=== PATIENT | female | born 1960 | race Caucasian/White ===

== ENCOUNTER 2016-08-04 17:05 | Emergency (ER) | payer MEDICAID ==
[2016-08-04 17:16] VITALS: BP 127/88; PULSE 84; RESP 20; TEMP 97.9; O2SAT 98
--- NOTE | 2016-08-04 17:41 | C.PDOC ---
History Of Present Illness 55 y/o female presents to the ED with complains of left ear canal pain. Pt was seen by Dr Reeder last week given Rx for cortisporin otic solution. Pt with prior presentations of right ear discomfort including extensive radiologic studies. Denies fever, chills, cough, sore throat, dizziness or any other complaints. Time Seen by Provider: 08/04/16 17:28 Chief Complaint (Nursing): Dizziness/Lightheaded History Per: Patient History/Exam Limitations: no limitations Onset/Duration Of Symptoms: Days Current Symptoms Are (Timing): Still Present Fall Associated With With Symptoms: No Severity: Mild Recent travel outside of the [place]: No Past Medical History Reviewed: Historical Data, Nursing Documentation, Vital Signs Vital Signs: Last Vital Signs Temp 97.9 F 08/04/16 17:12 Pulse 84 08/04/16 17:12 Resp 20 08/04/16 17:12 BP 127/88 08/04/16 17:12 Pulse Ox 98 08/04/16 17:46 - Medical History PMH: Anemia, Arthritis, Hypercholesterolemia, Migraine, Rheumatoid Arthritis Surgical History: Appendectomy Family History: States: Unknown Family Hx - Social History Hx Tobacco Use: No Hx Alcohol Use: No Hx Substance Use: No - Immunization History Hx Tetanus Toxoid Vaccination: No Hx Influenza Vaccination: No Hx Pneumococcal Vaccination: No Review Of Systems Except As Marked, All Systems Reviewed And Found Negative. Constitutional: Negative for: Fever, Chills ENT: Positive for: Ear Pain (left). Negative for: Throat Pain Respiratory: Negative for: Cough Physical Exam - Physical Exam Appears: Non-toxic, No Acute Distress Skin: Warm, Dry, No Rash Head: Atraumatic, Normacephalic Eye(s): left: Other (atrophy, baseline from childhood) Ear(s): Right: Other (ear canal boggy without exudate; bilateral TMs normal) Nose: Normal Oral Mucosa: Moist Throat: Normal, No Erythema Neck: Normal ROM, Supple Chest: Symmetrical Cardiovascular: Rhythm Regular, No Murmur Respiratory: Normal Breath Sounds, No Rales, No Rhonchi, No Wheezing Extremity: Bilateral: Atraumatic Neurological/Psych: Oriented x3 ED Course And Treatment O2 Sat by Pulse Oximetry: 98 (room air) Pulse Ox Interpretation: Normal Medical Decision Making Medical Decision Making: R ear canal inflammation unclear if pt using Cortisporin Otic Soln TID x 3 drops as prescribed by Dr. Reeder last week Normal TM noted. Pt demanding agressive intervention but none seem suitable Referred back to f/u with Dr. Reeder as instructed previously. Repeat CT's and eval deferred as pt's otitis externa well understood and LOW likelyhood of surreptitious underlying pathology considering the plethora of normal radiological studies and recent ENT eval with only otitis externa noted. [place]: recent Tylenol #3 prescription noted Valium 2 mg may illucidate underlying anxiety disorder. 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 I have reviewed the chart and agree that the record accurately reflects my personal performance of the history, physical exam, medical decision making, and the department course for this patient. I have also personally directed, reviewed, and agree with the discharge instructions and disposition.
== END 2016-08-04 17:54 | disposition left against medical advice (07) ==
LOC: C.ER 17:05
DX: H60.92 Unspecified otitis externa, left ear (principal)

== ENCOUNTER 2016-12-22 23:08 | Emergency (ER) | payer MEDICAID ==
--- NOTE | 2016-12-23 00:11 | C.PDOC ---
History Of Present Illness Patient presents to the ED for evaluation of a rash to her face and neck which has been occurring intermittently for around 3 weeks. Patient states she was evaluated in [facility] last week for similar complaints and was discharged with prescriptions for Benadryl and Medrol pack. Patient states the rash has persisted and presents to the ED for further evaluation. She denies fever, chills, cough, shortness of breath, throat swelling. Time Seen by Provider: 12/23/16 00:11 Chief Complaint (Nursing): Allergic Reaction History Per: Patient History/Exam Limitations: no limitations Onset/Duration Of Symptoms: Intermittent Episodes (around 3 weeks ) Current Symptoms Are (Timing): Still Present Possible Cause: Unknown Associated Symptoms: Skin Rash. denies: Dyspnea, Trouble Swallowing Home/EMS Treatment: Benadryl Severity: Mild Pain Scale Rating Of: 3 Recent travel outside of the [place]: No Additional History Per: Patient Past Medical History Reviewed: Historical Data, Nursing Documentation, Vital Signs Vital Signs: Last Vital Signs Temp 98.4 F 12/22/16 23:54 Pulse 73 12/22/16 23:54 Resp 20 12/22/16 23:54 BP 144/83 12/22/16 23:54 Pulse Ox 99 12/23/16 00:35 - Medical History PMH: Anemia, Arthritis, Hypercholesterolemia, Migraine, Rheumatoid Arthritis Surgical History: Appendectomy Family History: States: Unknown Family Hx - Social History Hx Tobacco Use: No Hx Alcohol Use: No Hx Substance Use: No - Immunization History Hx Tetanus Toxoid Vaccination: No Hx Influenza Vaccination: No Hx Pneumococcal Vaccination: No Review Of Systems Constitutional: Negative for: Fever, Chills Eyes: Negative for: Redness ENT: Negative for: Throat Swelling Cardiovascular: Negative for: Chest Pain, Palpitations Respiratory: Negative for: Cough, Shortness of Breath Gastrointestinal: Negative for: Nausea, Vomiting Musculoskeletal: Negative for: Back Pain Skin: Positive for: Rash (face and neck ). Negative for: Lesions, Jaundice, Bruising Neurological: Negative for: Weakness, Numbness Psych: Negative for: Anxiety Physical Exam - Physical Exam Appears: Non-toxic, No Acute Distress Skin: Warm, Dry, Rash (urticaria to face, neck and mild to anterior chest wall ) Head: Normacephalic Eye(s): bilateral: Normal Inspection, PERRL, EOMI Oral Mucosa: Moist Tongue: Normal Appearing Lips: Normal Appearing Throat: No Erythema, No Exudate, No Drooling, Other (tolerating PO intake ) Neck: Trachea Midline, Supple Chest: Symmetrical, No Deformity, No Tenderness Cardiovascular: Rhythm Regular, No Murmur Respiratory: No Rales, No Rhonchi, No Wheezing, Other (speaking complete sentences ) Gastrointestinal/Abdominal: Soft, No Tenderness, No Distention Extremity: Normal ROM, Capillary Refill (less than 2 seconds ) Extremity: Bilateral: Atraumatic Neurological/Psych: Oriented x3, Normal Speech, Normal Cognition Gait: Steady ED Course And Treatment O2 Sat by Pulse Oximetry: 99 (on RA) Pulse Ox Interpretation: Normal Progress Note: Patient received Benadryl IVP, Pepcid IVP, Solu-Medrol IVP, and IV Fluids. Reevaluation Time: 01:37 Reassessment Condition: Improved Critical Care Time - Critical Care Note Total Time (in mins): 30 Documented critical care: time excludes all time spent performing seperately billable procedures. Disposition Counseled Patient/Family Regarding: Studies Performed, Diagnosis, Need For Followup, Rx Given - Disposition Referrals: [facility] [Outside] [facility] [Outside] Disposition: HOME/ ROUTINE Disposition Time: 00:11 Condition: FAIR Additional Instructions: Please also use benadryl, pepcid and claritin Prescriptions: Famotidine [Pepcid] 40 mg PO DAILY #5 tablet Loratadine [Claritin] 10 mg PO DAILY #10 tab predniSONE [predniSONE Tab] 20 mg PO DAILY #5 tab Instructions: General Allergic Reaction (ED), Urticaria (ED) Forms: [employer] (Yakut) Print Language: TELUGU - Clinical Impression Clinical Impression: Allergic reaction - Scribe Statement The provider has reviewed the documentation as recorded by the Scribe (Juju Haynes) Provider Attestation: All medical record entries made by the Scribe were at my direction and personally dictated by me. I have reviewed the chart and agree that the record accurately reflects my personal performance of the history, physical exam, medical decision making, and the department course for this patient. I have also personally directed, reviewed, and agree with the discharge instructions and disposition.
[2016-12-23] MEDS ORDERED: DiphenhydrAMINE 50 mg/ml Inj IVP STA (00:13)
[2016-12-23] MEDS ORDERED: Sodium Chloride 0.9% 1,000 ML IV ONE ×2 (00:14→00:17)
[2016-12-23] MEDS ORDERED: DiphenhydrAMINE 50 mg/ml Inj ONE (00:23)
[2016-12-23] MEDS ORDERED: Sodium Chloride 0.9% 1,000 ML ONE (00:23)
[2016-12-23 02:03] VITALS: BP 113/68; PULSE 69; RESP 16; TEMP 97.9; O2SAT 96
== END 2016-12-23 02:03 | disposition home or self-care (01) ==
LOC: C.ER 23:08
DX: L50.0 Allergic urticaria (principal)
CPT/HCPCS: 96361; 96374; 96375; 99283; J1200; J2930; J7040

== ENCOUNTER 2017-01-02 16:54 | Emergency (ER) | payer MEDICAID ==
[2017-01-02 17:12] VITALS: RESP 18; O2SAT 99
[2017-01-02] MEDS ORDERED: Sodium Chloride 0.9% 1,000 ML IV ONE (18:13)
[2017-01-02] MEDS ORDERED: Sodium Chloride 0.9% 1,000 ML ONE (18:32)
--- NOTE | 2017-01-02 18:43 | C.PDOC ---
History Of Present Illness 56 yr old female presents to the ER with complaints of epigastric, LUQ burning pain. Patient states yesterday the burning came up into her throat and tasted sour, also reports of LLQ pain. Patient states the symptoms have been going on for the past 3 days. Reports recently she was diagnosed with "strep throat" by her PMD and was started on Augmentin and probiotics and the symptoms started afterwards. Reports of nausea also. Patient denies fever, chills, chest pain, SOB, vomiting, diarrhea, dysuria, hematuria, weakness, numbness or history of GERD. Time Seen by Provider: 01/02/17 17:54 Chief Complaint (Nursing): Abdominal Pain History Per: Patient History/Exam Limitations: no limitations Onset/Duration Of Symptoms: Days (3) Past Medical History Reviewed: Historical Data, Nursing Documentation, Vital Signs Vital Signs: Last Vital Signs Temp 98.4 F 01/02/17 20:15 Pulse 75 01/02/17 20:15 Resp 18 01/02/17 20:15 BP 125/76 01/02/17 20:15 Pulse Ox 99 01/02/17 20:15 - Medical History PMH: Anemia, Arthritis, Hypercholesterolemia, Migraine, Rheumatoid Arthritis Surgical History: Appendectomy Family History: States: No Known Family Hx - Social History Hx Tobacco Use: No Hx Alcohol Use: No Hx Substance Use: No - Immunization History Hx Tetanus Toxoid Vaccination: No Hx Influenza Vaccination: No Hx Pneumococcal Vaccination: No Review Of Systems Except As Marked, All Systems Reviewed And Found Negative. Constitutional: Negative for: Fever, Chills Cardiovascular: Negative for: Chest Pain Respiratory: Negative for: Shortness of Breath Gastrointestinal: Positive for: Nausea, Abdominal Pain (Epigastric, LUQ, LLQ). Negative for: Vomiting, Diarrhea Genitourinary: Negative for: Dysuria, Hematuria Neurological: Negative for: Weakness, Numbness Physical Exam - Physical Exam Appears: Non-toxic, In Acute Distress (Mild pain), Other ((+) Obese) Skin: Warm, Dry, No Rash Head: Atraumatic, Normacephalic Oral Mucosa: Moist Chest: Symmetrical, No Tenderness Cardiovascular: Rhythm Regular, No Murmur Respiratory: Normal Breath Sounds, No Rales, No Rhonchi, No Wheezing Gastrointestinal/Abdominal: Soft, Tenderness (Mild tenderness in LUQ and LLQ), No Guarding, No Rebound, Other ((-) Zaman Signs. [place].) Back: Normal Inspection, No CVA Tenderness Extremity: Normal ROM, No Swelling Neurological/Psych: Oriented x3, Normal Speech, Normal Motor ED Course And Treatment - Laboratory Results Result Diagrams: 01/02/17 18:55 01/02/17 18:55 O2 Sat by Pulse Oximetry: 99 (RA) Pulse Ox Interpretation: Normal Progress Note: PLAN: CBC, CMP, Urinalysis, Pepcid IVP & Sodium Chloride IV. Disposition Counseled Patient/Family Regarding: Studies Performed, Diagnosis, Need For Followup, Rx Given - Disposition Referrals: Camilla Chaudhry MD [Medical Doctor] - Gordon Cook MD [Staff Provider] - Disposition: HOME/ ROUTINE Disposition Time: 21:46 Additional Instructions: SEGUIMIENTO CON GASTROENTERLOGO DENTRO DE 1 SEMANA USE MEDICAMENTOS TODOS LOS SHELTON EVITE LOS ALIMENTOS PICANTES O ACIDICOS, Y NO COME DOS HORAS ANTES DE DORMIR O PONERSE DEVUELVA A LA GOPI DE EMERGENCIA SI LOS SNTOMAS EMPEORARAN Prescriptions: Pantoprazole [Protonix EC Tab] 20 mg PO DAILY #30 ect Instructions: Gastroesophageal Reflux Disease (ED) Forms: [employer] (Yakut) Print Language: SOMALI - POA Present On Arrival: None - Clinical Impression Clinical Impression: GERD (gastroesophageal reflux disease) - Scribe Statement The provider has reviewed the documentation as recorded by the Scribe Steffi Mackay Provider Attestation: All medical record entries made by the Scribe were at my direction and personally dictated by me. I have reviewed the chart and agree that the record accurately reflects my personal performance of the history, physical exam, medical decision making, and the department course for this patient. I have also personally directed, reviewed, and agree with the discharge instructions and disposition.
[2017-01-02 19:07] LABS: BASO % 0.3 % (0.0-2.0); EOS % 0.3 % (0.0-4.0); HEMATOCRIT 40.9 % (34.0-47.0); LYMPH # 1.9 K/uL (1.0-4.3); LYMPH % 27.6 % (20.0-40.0); MEAN CELL VOLUME 90.8 fL (81.0-99.0); MEAN CORPUSCULAR HEMOGLOBIN 31.6 pg (27.0-31.0); MEAN CORPUSCULAR HGB CONC 34.8 g/dL (33.0-37.0); MEAN PLATELET VOLUME 7.8 fL (7.2-11.7); MONO # 0.4 K/uL (0.0-0.8)
[2017-01-02 19:11] LABS: RBC URINE < 1 /hpf (0-3); URINE BACTERIA RARE (<OCC); URINE BILIRUBIN NEGATIVE (NEGATIVE); URINE BLOOD NEGATIVE (NEGATIVE); URINE COLOR Straw (YELLOW); URINE GLUCOSE (UA) NORMAL (Normal); URINE KETONE 1+ mg/dL (NEGATIVE); URINE LEUKOCYTE ESTERASE NEG Leu/uL (Negative); URINE PROTEIN NEGATIVE (NEGATIVE); URINE UROBILINOGEN NORMAL mg/dL (0.2-1.0); WBC URINE 1 /hpf (0-5)
[2017-01-02 19:12] LABS: CHLORIDE 100 mmol/L (98-107); POTASSIUM 4.1 mmol/L (3.6-5.2); SODIUM 142 mmol/L (132-148)
[2017-01-02 19:14] LABS: AST/SGOT 48 U/L (14-36); BILIRUBIN,TOTAL 0.8 mg/dL (0.2-1.3); CARBON DIOXIDE 25 mmol/L (22-30); GFR AFRICAN-AMERICAN > 60
[2017-01-02 19:15] LABS: ALB/GLOB RATIO 1.4 (1.0-2.1); ALKALINE PHOSPHATASE 83 U/L (38-126); ALT/SGPT 90 U/L (9-52); BLOOD UREA NITROGEN 9 mg/dL (7-17); CALCIUM 9.4 mg/dl (8.6-10.4); GLUCOSE,RANDOM 84 mg/dL (65-105); TOTAL PROTEIN 7.8 g/dL (6.3-8.3)
[2017-01-02 20:16] VITALS: TEMP 98.4
[2017-01-02] MEDS ORDERED: Aluminum Hydroxide/Magnesium Hydroxide Susp (30 mL) ONE (21:18)
[2017-01-02] MEDS ORDERED: Aluminum Hydroxide/Magnesium Hydroxide Susp (30 mL) PO STA (21:19)
--- NOTE | 2017-01-02 21:19 | US ---
EXAM: US Abdomen Limited, Right Upper Quadrant CLINICAL HISTORY: 56 years old, female; Pain; Abdominal pain; Epigastric; Additional info: Epigastric pain, R/O gallstones TECHNIQUE: Real-time ultrasound of the right upper quadrant with image documentation. COMPARISON: US - ABDOMEN COMPLETE 05/31/2015 10:07:36 AM FINDINGS: Liver: Fatty infiltration. No mass. No intrahepatic ductal dilatation. Gallbladder: No gallstones. No wall thickening. No pericholecystic fluid. No sonographic Zaman's sign. Common bile duct: No dilatation. No stones. Pancreas: Unremarkable as visualized. Right kidney: Normal echogenicity. No hydronephrosis. IMPRESSION: 1.No acute findings. 2.Non-acute findings are described above.
[2017-01-02 22:01] VITALS: BP 126/82; PULSE 64
== END 2017-01-02 22:23 | disposition home or self-care (01) ==
LOC: C.ER 16:54
DX: K21.9 Gastro-esophageal reflux disease without esophagitis (principal)
CPT/HCPCS: 76705; 80053; 81001; 83690; 85025; 96361; 96374; 96375; 99285; J2270; J7040

== ENCOUNTER 2017-05-17 00:24 | Emergency (ER) | payer MEDICAID ==
[2017-05-17 01:19] VITALS: RESP 18
[2017-05-17] MEDS ORDERED: Sodium Chloride 0.9% 1,000 ML IV ONE (02:38)
[2017-05-17] MEDS ORDERED: Iohexol 240 (50 ml) PO ONE (02:38)
--- NOTE | 2017-05-17 02:43 | C.PDOC ---
History Of Present Illness 56yo female, presents to ER for evaluation of on and off lower abdominal pain, described as a burning sensation. She also reports associated dysuria, denies any hematuria, vomiting or diarrhea. NO other complaints. Chief Complaint (Nursing): Abdominal Pain History Per: Patient History/Exam Limitations: no limitations Onset/Duration Of Symptoms: Days, Intermittent Episodes Current Symptoms Are (Timing): Still Present Location Of Pain/Discomfort: Diffuse Past Medical History Reviewed: Historical Data, Nursing Documentation, Vital Signs Vital Signs: Last Vital Signs Temp 98.2 F 05/17/17 05:15 Pulse 71 05/17/17 05:15 Resp 18 05/17/17 05:15 BP 147/72 05/17/17 05:15 Pulse Ox 100 05/17/17 05:15 - Medical History PMH: Anemia, Arthritis, Hypercholesterolemia, Migraine, Rheumatoid Arthritis Surgical History: Appendectomy Family History: States: Unknown Family Hx - Social History Hx Tobacco Use: No Hx Alcohol Use: No Hx Substance Use: No - Immunization History Hx Tetanus Toxoid Vaccination: No Hx Influenza Vaccination: No Hx Pneumococcal Vaccination: No Review Of Systems Except As Marked, All Systems Reviewed And Found Negative. Constitutional: Negative for: Fever, Chills Gastrointestinal: Positive for: Abdominal Pain. Negative for: Nausea, Vomiting , Diarrhea Genitourinary: Positive for: Dysuria. Negative for: Hematuria Physical Exam - Physical Exam Appears: Non-toxic Skin: Warm, Dry Head: Normacephalic Eye(s): bilateral: Normal Inspection Neck: Normal ROM, Supple Cardiovascular: Rhythm Regular, No Murmur Respiratory: Normal Breath Sounds, No Wheezing Gastrointestinal/Abdominal: Bowel Sounds, Soft, Tenderness (tenderness bilateral lower quadrants), No Guarding, No Rebound Back: Normal Inspection, No CVA Tenderness Extremity: Normal ROM Neurological/Psych: Oriented x3 ED Course And Treatment - Laboratory Results Result Diagrams: 05/17/17 03:30 05/17/17 03:30 O2 Sat by Pulse Oximetry: 99 (RA) Pulse Ox Interpretation: Normal Medical Decision Making Medical Decision Making: Impression: Intermittent episodes of abdominal pain Plan: -- CT Abdomen/ Pelvis with PO & IV Contrast -- Labs -- Toradol 30mg IVP Disposition Counseled Patient/Family Regarding: Diagnosis - Disposition Referrals: Camilla Chaudhry MD [Primary Care Provider] - [facility] [Outside] Disposition: HOME/ ROUTINE Disposition Time: 05:22 Condition: STABLE Instructions: Colitis (ED) Forms: [employer] (Georgian), Gen Discharge Inst Malian Print Language: INDONESIAN - POA Present On Arrival: None - Clinical Impression Clinical Impression: Abdominal pain, Colitis - Scribe Statement The provider has reviewed the documentation as recorded by the Scribe (Shelia Freitas) Provider Attestation: All medical record entries made by the Scribe were at my direction and personally dictated by me. I have reviewed the chart and agree that the record accurately reflects my personal performance of the history, physical exam, medical decision making, and the department course for this patient. I have also personally directed, reviewed, and agree with the discharge instructions and disposition.
[2017-05-17] MEDS ORDERED: Sodium Chloride 0.9% 1,000 ML ONE (02:53)
[2017-05-17] MEDS ORDERED: Iohexol 240 (50 ml) ONE (02:53)
[2017-05-17 03:34] LABS: BASO % 0.4 % (0.0-2.0); EOS # 0.1 K/uL (0.0-0.7); EOS % 2.2 % (0.0-4.0); LYMPH # 1.9 K/uL (1.0-4.3); LYMPH % 34.7 % (20.0-40.0); MEAN CELL VOLUME 92.1 fL (81.0-99.0); MEAN CORPUSCULAR HEMOGLOBIN 31.1 pg (27.0-31.0); MEAN CORPUSCULAR HGB CONC 33.8 g/dL (33.0-37.0); MEAN PLATELET VOLUME 8.3 fL (7.2-11.7); MONO # 0.4 K/uL (0.0-0.8); NEUT # 3.1 K/uL (1.8-7.0); NEUT % 55.7 % (50.0-75.0); RBC 4.19 Mil/uL (3.80-5.20); RED CELL DISTRIBUTION WIDTH 13.1 % (11.5-14.5); WHITE BLOOD COUNT 5.6 K/uL (4.8-10.8)
[2017-05-17 03:37] LABS: SQUAMOUS EPITHIAL 1 /hpf (0-5); URINE BILIRUBIN NEGATIVE (NEGATIVE); URINE BLOOD NEGATIVE (NEGATIVE); URINE CLARITY Clear (Clear); URINE COLOR Yellow (YELLOW); URINE GLUCOSE (UA) NORMAL (Normal); URINE LEUKOCYTE ESTERASE NEG Leu/uL (Negative); URINE NITRATE NEGATIVE (NEGATIVE); URINE PROTEIN NEGATIVE (NEGATIVE); URINE UROBILINOGEN NORMAL mg/dL (0.2-1.0)
[2017-05-17 03:46] LABS: ALB/GLOB RATIO 1.3 (1.0-2.1); ALBUMIN 4.4 g/dL (3.5-5.0); ALT/SGPT 44 U/L (9-52); AST/SGOT 35 U/L (14-36); BLOOD UREA NITROGEN 12 mg/dL (7-17); CALCIUM 8.7 mg/dl (8.6-10.4); GFR AFRICAN-AMERICAN > 60; GFR NON-AFRICAN AMERICAN > 60; LIPASE 250 U/L (23-300)
[2017-05-17] MEDS ORDERED: Iodixanol 320 MG/ML 100 ML BOTTLE IV ONE (04:24)
--- NOTE | 2017-05-17 05:08 | CT ---
EXAM: CT Abdomen and Pelvis With Intravenous Contrast CLINICAL HISTORY: 56 years old, female; Pain; Abdominal pain; Prior surgery; Surgery type: Appendectomy; Additional info: Abd pain/ kendra. Lower quadrants TECHNIQUE: Axial computed tomography images of the abdomen and pelvis with intravenous contrast. All CT scans at this facility use one or more dose reduction techniques, viz.: automated exposure control; ma/kV adjustment per patient size (including targeted exams where dose is matched to indication; i.e. head); or iterative reconstruction technique. Coronal and sagittal reformatted images were created and reviewed. CONTRAST: 100 mL of [id number] administered intravenously. COMPARISON: US - ABDOMEN COMPLETE 2015-05-31 10:07 FINDINGS: Limitations: Motion artifact - mild. Lower thorax: Minimal atelectasis/scarring. Contrast within esophagus may represent reflux. ABDOMEN: Liver: Mild fatty infiltration. Gallbladder and bile ducts: No calcified stones. No ductal dilation. Pancreas: No ductal dilation. No mass. Spleen: No splenomegaly. Adrenals: No mass. Kidneys and ureters: No mass. No hydronephrosis. Stomach and bowel: Few scattered diverticula within colon. No associated inflammatory stranding. Mild mural thickening vs underdistention of distal descending, proximal sigmoid colon. No associated inflammatory stranding. No obstruction. Appendix: Appendectomy. PELVIS: Bladder: Unremarkable. Reproductive: Unremarkable as visualized. ABDOMEN and PELVIS: Intraperitoneal space: No significant fluid collection. No free air. Bones/joints: No acute fracture. Soft tissues: Tiny inguinal hernias containing fat. Vasculature: Unremarkable. No aneurysm. Lymph nodes: No pathologically enlarged lymph nodes. IMPRESSION: 1. Mild colitis versus underdistention. Clinical correlation is needed. 2. Incidental/non-acute findings are described above.
[2017-05-17 05:15] VITALS: BP 147/72; PULSE 71; TEMP 98.2
[2017-05-17] MEDS ORDERED: Belladonna-Phenobarbital PO STA (05:17)
[2017-05-17 05:23] VITALS: O2SAT 99
[2017-05-17] MEDS ORDERED: Belladonna-Phenobarbital ONE (05:26)
== END 2017-05-17 05:49 | disposition home or self-care (01) ==
LOC: SUPCPDRO 00:24 → C.ER 00:24
DX: K52.9 Noninfective gastroenteritis and colitis, unspecified (principal); R10.30 Lower abdominal pain, unspecified
CPT/HCPCS: 74177; 80053; 81001; 83690; 85025; 99284; J7040; Q9966; Q9967

== ENCOUNTER 2017-07-20 23:14 | Emergency (ER) | payer MEDICAID ==
[2017-07-21 00:41] LABS: SQUAMOUS EPITHIAL 1 /hpf (0-5); URINE BILIRUBIN NEGATIVE (NEGATIVE); URINE BLOOD NEGATIVE (NEGATIVE); URINE CLARITY Clear (Clear); URINE COLOR Straw (YELLOW); URINE GLUCOSE (UA) NORMAL (Normal); URINE LEUKOCYTE ESTERASE NEG Leu/uL (Negative); URINE PROTEIN NEGATIVE (NEGATIVE); URINE UROBILINOGEN NORMAL mg/dL (0.2-1.0)
[2017-07-21] MEDS ORDERED: Morphine 4 MG/ML VIAL ONE (01:16)
--- NOTE | 2017-07-21 01:21 | C.PDOC ---
History Of Present Illness 56 y/o female who presents to the ED with dysuria onset following pap smear a few days ago. Associated with urinary frequency and urgency. Patient states pain is currently suprapubic, but radiates to both flanks. Denies any fever, nausea, vomiting, or other complaints. Time Seen by Provider: 07/21/17 01:02 Chief Complaint (Nursing): Female Genitourinary History Per: Patient History/Exam Limitations: no limitations Onset/Duration Of Symptoms: Days Current Symptoms Are (Timing): Still Present Past Medical History Reviewed: Historical Data, Nursing Documentation, Vital Signs Vital Signs: Last Vital Signs Temp 98.2 F 07/20/17 23:20 Pulse 78 07/20/17 23:20 Resp 18 07/20/17 23:20 BP 144/85 07/20/17 23:20 Pulse Ox 99 07/21/17 03:08 - Medical History PMH: Anemia, Arthritis, Hypercholesterolemia, Migraine, Rheumatoid Arthritis Denies: Chronic Kidney Disease Surgical History: Appendectomy Family History: States: Unknown Family Hx - Social History Hx Tobacco Use: No Hx Alcohol Use: No Hx Substance Use: No - Immunization History Hx Tetanus Toxoid Vaccination: No Hx Influenza Vaccination: No Hx Pneumococcal Vaccination: No Review Of Systems Except As Marked, All Systems Reviewed And Found Negative. Constitutional: Negative for: Fever, Chills Gastrointestinal: Positive for: Abdominal Pain (radiating to both flanks). Negative for: Nausea, Vomiting, Diarrhea Genitourinary: Positive for: Dysuria, Frequency, Other (urgency). Negative for : Hematuria Physical Exam - Physical Exam Appears: Non-toxic, No Acute Distress Skin: Normal Color, Warm, Dry Head: Atraumatic, Normacephalic Eye(s): bilateral: Normal Inspection, PERRL, EOMI Neck: Normal ROM, Supple Chest: Symmetrical Cardiovascular: Rhythm Regular, No Murmur, Other (S1, S2 wnl) Respiratory: No Rales, No Rhonchi, No Wheezing, Other (Lungs CTA bilaterally) Gastrointestinal/Abdominal: Tenderness (mild suprapubic tenderness), No Mass, No Rebound, Other (obese abdomen) Back: CVA Tenderness (bilateral CVA and flank tenderness), No Vertebral Tenderness Extremity: Bilateral: Atraumatic, Normal Color And Temperature (with no clubbing , cyanosis, or edema) Neurological/Psych: Oriented x3, Normal Speech, Normal Motor, Normal Sensation, No Other (focal deficits) ED Course And Treatment - Laboratory Results Result Diagrams: 07/21/17 01:22 07/21/17 01:22 O2 Sat by Pulse Oximetry: 99 (RA) Pulse Ox Interpretation: Normal - CT Scan/US CT abdomen/pelvis Other Rad Studies (CT/US): Read By Radiologist, Radiology Report Reviewed CT/US Interpretation: FINDINGS: Limitations: Lack of intravenous contrast. Lung bases: Minimal atelectasis/scarring. ABDOMEN: Liver: Unremarkable. Gallbladder and bile ducts: No calcified stones. No ductal dilation. Pancreas: Unremarkable. No ductal dilation. Spleen: No splenomegaly. Adrenals: No mass. Kidneys and ureters: No renal calculi. No hydronephrosis. Stomach and bowel: Few scattered diverticula within colon. No associated inflammatory stranding. No definite mural thickening. No obstruction. Appendix: Appendectomy. PELVIS: Bladder: Unremarkable. No stones. Reproductive: Unremarkable as visualized. ABDOMEN and PELVIS: Intraperitoneal space: No significant fluid collection. No free air. Bones/joints: No acute fracture. Soft tissues: Tiny inguinal hernias containing fat. Vasculature: Unremarkable. No aneurysm. Lymph nodes: No pathologically enlarged lymph nodes. IMPRESSION: 1. Diverticulosis without definite CT evidence of diverticulitis. 2. Incidental/non-acute findings are described above. Thank you for allowing us to participate in the care of your patient. Dictated and Authenticated by: Genaro King MD. 07/21/2017 2:19 AM Eastern Time ([place] & [place]) Medical Decision Making Medical Decision Making: Impression: Dysuria and suprapubic pain, r/o UTI Plan: --UA --CMP --CBC --Lipase --CT abdomen/pelvis --Morphine 2 mg IVP Lab work is completely unremarkable, including urine. CT is negative. Patient will be discharged home with rx for pyridium. Diagnosis: Dysuria, etiology unknown Disposition Counseled Patient/Family Regarding: Studies Performed, Diagnosis, Need For Followup, Rx Given - Disposition Disposition: HOME/ ROUTINE Disposition Time: 03:00 Condition: STABLE Prescriptions: Phenazopyridine HCl [Pyridium] 100 mg PO TID #6 tab Instructions: Dysuria, Adult (DC) Forms: [employer] (New Zealander) Print Language: SLOVENIAN - POA Present On Arrival: None - Clinical Impression Clinical Impression: Dysuria - Scribe Statement The provider has reviewed the documentation as recorded by the Scribe (Eveline Grijalva) Provider Attestation: All medical record entries made by the Scribe were at my direction and personally dictated by me. I have reviewed the chart and agree that the record accurately reflects my personal performance of the history, physical exam, medical decision making, and the department course for this patient. I have also personally directed, reviewed, and agree with the discharge instructions and disposition.
[2017-07-21 01:26] LABS: BASO # 0.1 K/uL (0.0-0.2); EOS # 0.1 K/uL (0.0-0.7); EOS % 2.3 % (0.0-4.0); HEMOGLOBIN 13.8 g/dL (11.0-16.0); LYMPH # 2.2 K/uL (1.0-4.3); LYMPH % 44.9 % (20.0-40.0); MEAN CELL VOLUME 91.5 fL (81.0-99.0); MEAN CORPUSCULAR HEMOGLOBIN 31.2 pg (27.0-31.0); MEAN CORPUSCULAR HGB CONC 34.1 g/dL (33.0-37.0); MEAN PLATELET VOLUME 7.7 fL (7.2-11.7); MONO # 0.4 K/uL (0.0-0.8); MONO % 7.6 % (0.0-10.0); NEUT # 2.2 K/uL (1.8-7.0); NEUT % 44.2 % (50.0-75.0); NRBC % 0.1 % (0.0-2.0); RBC 4.41 Mil/uL (3.80-5.20); RED CELL DISTRIBUTION WIDTH 13.7 % (11.5-14.5); WHITE BLOOD COUNT 4.9 K/uL (4.8-10.8)
[2017-07-21 01:40] LABS: ALB/GLOB RATIO 1.4 (1.0-2.1); ALBUMIN 4.4 g/dL (3.5-5.0); ALT/SGPT 34 U/L (9-52); AST/SGOT 32 U/L (14-36); BLOOD UREA NITROGEN 9 mg/dL (7-17); GFR AFRICAN-AMERICAN > 60; GFR NON-AFRICAN AMERICAN > 60; LIPASE 193 U/L (23-300)
--- NOTE | 2017-07-21 02:19 | CT ---
EXAM: CT Abdomen and Pelvis Without Intravenous Contrast CLINICAL HISTORY: 56 years old, female; Pain; Abdominal pain and other: More lower area; Patient HX: 05-17-17 images sent; Additional info: Abd pain TECHNIQUE: Axial computed tomography images of the abdomen and pelvis without intravenous contrast. All CT scans at this facility use one or more dose reduction techniques, viz.: automated exposure control; ma/kV adjustment per patient size (including targeted exams where dose is matched to indication; i.e. head); or iterative reconstruction technique. Coronal and sagittal reformatted images were created and reviewed. COMPARISON: CT - ABD PELVIS PO IV CONTRAST 2017-05-17 04:41 FINDINGS: Limitations: Lack of intravenous contrast. Lung bases: Minimal atelectasis/scarring. ABDOMEN: Liver: Unremarkable. Gallbladder and bile ducts: No calcified stones. No ductal dilation. Pancreas: Unremarkable. No ductal dilation. Spleen: No splenomegaly. Adrenals: No mass. Kidneys and ureters: No renal calculi. No hydronephrosis. Stomach and bowel: Few scattered diverticula within colon. No associated inflammatory stranding. No definite mural thickening. No obstruction. Appendix: Appendectomy. PELVIS: Bladder: Unremarkable. No stones. Reproductive: Unremarkable as visualized. ABDOMEN and PELVIS: Intraperitoneal space: No significant fluid collection. No free air. Bones/joints: No acute fracture. Soft tissues: Tiny inguinal hernias containing fat. Vasculature: Unremarkable. No aneurysm. Lymph nodes: No pathologically enlarged lymph nodes. IMPRESSION: 1. Diverticulosis without definite CT evidence of diverticulitis. 2. Incidental/non-acute findings are described above.
[2017-07-21 03:16] VITALS: BP 102/61; PULSE 67; RESP 22; TEMP 98
[2017-07-21 04:17] VITALS: O2SAT 99
== END 2017-07-21 03:24 | disposition home or self-care (01) ==
LOC: C.ER 23:14
DX: R30.0 Dysuria (principal); D64.9 Anemia, unspecified; E78.00 Pure hypercholesterolemia, unspecified
CPT/HCPCS: 74176; 80053; 81001; 83690; 85025; 96374; 99284; J2270

== ENCOUNTER 2018-08-25 15:29 | Outpatient (CLI) | payer OTHER | END 2018-08-25 15:30 | disposition home or self-care (01) | LOC: C.MAMMO 15:29 | DX: Z12.31 Encounter for screening mammogram for malignant neoplasm of breast (principal) ==